=== PATIENT | male | born 1960 | race Caucasian/White ===

== ENCOUNTER 2017-03-04 10:05 | Emergency (ER) | payer BC ==
[~2017-03-04] VITALS: Ht 175.3 cm; Wt 95.4 kg
[2017-03-04 10:20] VITALS: TEMP 36.8; Ht 175.3 cm; Wt 95.4 kg
[2017-03-04] MEDS ORDERED: ZNTT/150 PO (10:45)
[2017-03-04] MEDS ORDERED: ALBU18002 INH (10:45)
[2017-03-04] MEDS ORDERED: MOME16.7 INH (10:45)
[2017-03-04] MEDS ORDERED: SERT50TA PO (10:45)
[2017-03-04] MEDS ORDERED: SRVDIN50 INH (10:45)
[2017-03-04] MEDS ORDERED: DOXE10CA PO (10:45)
[2017-03-04] MEDS ORDERED: HYDR-4715 PO (10:45)
[2017-03-04] MEDS ORDERED: PRED-301 PO (10:45)
[2017-03-04] MEDS ORDERED: ALBUT/IPRATROP 3MG/0.5MG NEB 3 ML VIAL INH STA (11:18)
[2017-03-04] MEDS ORDERED: METHYLPREDNISOLONE 125 MG VIAL IV STA (11:19)
[2017-03-04 11:36] LABS: BASO % 0.1 %; BASO ABS # 0.02 K/uL (0-0.2); COMPLETE YES; EOS % 0.2 %; HEMATOCRIT 43.4 % (42-52); IG% 0.9 %; LYMPH % 11.8 %; LYMPH ABS # 1.68 K/uL (1.2-3.4); MEAN CELL VOLUME 88.4 fL (80-100); MEAN CORPUSCULAR HEMOGLOBIN 29.1 pg (25-34); MEAN CORPUSCULAR HGB CONC 32.9 g/dl (32-36); MEAN PLATELET VOLUME 9.2 fL (7.4-10.4); MONO % 13.4 %; NEUT % 73.6 %; PLATELET COUNT 355 K/uL (130-400); RED BLOOD COUNT 4.91 M/uL (4.7-6.1); WHITE BLOOD COUNT 14.29 K/uL (4.8-10.8)
--- NOTE | 2017-03-04 11:45 | DIAGNOSTIC IMAGING REPORT ---
CHEST 2 VIEWS ROUTINE CLINICAL HISTORY: Respiratory distress. Dyspnea. COMPARISON STUDY: No previous studies for comparison. FINDINGS: Lung volumes are normal. There is no pneumothorax or pleural effusion. There are multifocal airspace opacities within the bilateral mid to lower lungs. Cardiac size is normal. Mediastinal contours are normal. IMPRESSION: Moderate multifocal bilateral opacities. The radiographic appearance is nonspecific although pneumonia is favored. Radiographic follow-up to ensure resolution is recommended. Electronically signed by: Yousif Mason M.D. 03/04/2017 11:44 AM Dictated Date/Time: 03/04/2017 11:43 AM
[2017-03-04 11:54] LABS: CALCIUM 9.2 mg/dl (8.5-10.1); CREATININE 0.8 mg/dl (0.60-1.40)
[2017-03-04 11:57] LABS: ALB/GLOB RATIO 0.8 (0.9-2)
--- NOTE | 2017-03-04 12:10 | EMERGENCY ROOM VISIT NOTE ---
History First contact with patient: 11:06 Chief Complaint: RESPIRATORY DISTRESS Stated Complaint: ASTHMA ATTACK Nursing Triage Summary: Diff breathing, pt utilizing inhalers with no relief, called [facility], told to come to the ER. Pt talking full sentences in triage. Moist cough noted. History of Present Illness The patient is a 56 year old male who presents to the Emergency Room with complaints of wheezing and shortness of breath for the past week. Patient states that he has a form of allergic asthma, he is treated on multiple antihistamines and inhalers. He has been using his albuterol inhaler several times a day with minimal improvement. He states that he started taking prednisone 40 mg daily 5 days ago and has not improved with this as well. He does note for the past few days that he has had some chills and feeling more fatigued. His cough is nonproductive. He does note shortness of breath with exertion. He denies any chest pain. He discussed with his PCP today who told him to go to the ER because of persistent worsening symptoms. Review of Systems GENERAL: + fevers, chills, malaise, fatigue. Denies unintentional weight changes. HEENT: Denies dizziness, visual problems, hearing loss, tinnitus. Denies difficulty swallowing or oral lesions. PULMONARY: + Cough, shortness of breath, dyspnea on exertion. Denies sputum production or hemoptysis. CARDIOVASCULAR: Denies chest pain, palpitations, dyspnea on exertion, orthopnea or peripheral edema. GASTROINTESTINAL: Denies diarrhea, constipation, nausea, vomiting, or abdominal pain. GENITOURINARY: Denies dysuria, frequency, urgency or nocturia. NEUROLOGIC: Denies history of epilepsy, CVA, TIA or chronic headaches. MUSCULOSKELETAL: Denies history of joint tenderness/swelling. SKIN: Denies rashes or lesions. PSYCHIATRIC: Denies history of depression or mental illness. ENDOCRINE: Denies history of diabetes, thyroid disorders, abnormal hair growth or sexual dysfunction. Social History Smoking Status: Never Smoker Current/Historical Medications Scheduled Albuterol Sulfate (Proair Respiclick), 1 PUFF INH BID Doxepin (Sinequan), 1 CAP PO BID Doxycycline Hyclate (Doxycycline Hyclate Dr), 100 MG PO BID Mometasone Furoate (Inhalation (Asmanex Hfa), 1 PUFF INH BID Prednisone (Prednisone), 1 TAB PO QPM Ranitidine (Zantac), 1 TAB PO BID Salmeterol Xinafoate (Serevent Diskus), 1 PUFF INH BID Sertraline (Zoloft), 1 TAB PO BID Scheduled PRN Hydralazine Hcl (Apresoline), 1 TAB PO QID PRN for HIVES Allergies Coded Allergies: Erythromycin (Unverified Allergy, Intermediate, UNKNOWN/ALLERGY LONG AGO. , 03/04/17) Penicillins (Unverified Allergy, Intermediate, UNKNOWN/ALLERGY LONG AGO, ) Physical Exam Vital Signs Date Time Temp Pulse Resp B/P Pulse Ox O2 Delivery O2 Flow Rate FiO2 03/04/17 14:46 82 16 103/63 94 Room Air 03/04/17 13:52 93 03/04/17 13:45 107 16 130/87 96 Room Air 03/04/17 13:00 95 Room Air 03/04/17 13:00 95 Room Air 03/04/17 12:11 94 20 95 03/04/17 10:20 36.8 90 22 123/78 95 Room Air Physical Exam CONSTITUTIONAL: No acute distress. Well appearing and well nourished. Alert and oriented X 4 with normal affect. HEENT: Normocephalic, atraumatic. Pupils equal, round and reactive to light, EOMI. TMs normal. Pharynx normal. Moist mucous membranes. NECK: Supple, full active range of motion without discomfort. RESPIRATORY: Lung espinal are rhonchitic throughout with expiratory wheezes in all espinal. Bibasilar crackles and diminished lung sounds in the bases. CARDIOVASCULAR: Regular rate and rhythm with no murmurs, rubs or gallops. Normal peripheral perfusion. No edema. GASTROINTESTINAL: Soft, nontender, nondistended. Bowel sounds present in all quadrants. MUSCULOSKELETAL: Full range of motion of all joints without discomfort. INTEGUMENTARY: No rash or other significant dermatologic conditions noted. NEUROLOGIC: Cranial nerves II-XII grossly intact. No focal neurologic deficits noted. Medical Decision & Procedures ER Provider Diagnostic Interpretation: CHEST 2 VIEWS ROUTINE CLINICAL HISTORY: Respiratory distress. Dyspnea. COMPARISON STUDY: No previous studies for comparison. FINDINGS: Lung volumes are normal. There is no pneumothorax or pleural effusion. There are multifocal airspace opacities within the bilateral mid to lower lungs. Cardiac size is normal. Mediastinal contours are normal. IMPRESSION: Moderate multifocal bilateral opacities. The radiographic appearance is nonspecific although pneumonia is favored. Radiographic follow-up to ensure resolution is recommended. Laboratory Results 03/04/17 11:20 Red Blood Count 4.91, Mean Corpuscular Volume 88.4, Mean Corpuscular Hemoglobin 29.1, Mean Corpuscular Hemoglobin Concent 32.9, Mean Platelet Volume 9.2, Neutrophils (%) (Auto) 73.6, Lymphocytes (%) (Auto) 11.8, Monocytes (%) (Auto) 13.4, Eosinophils (%) (Auto) 0.2, Basophils (%) (Auto) 0.1, Neutrophils # (Auto ) 10.52, Lymphocytes # (Auto) 1.68, Monocytes # (Auto) 1.91, Eosinophils # (Auto ) 0.03, Basophils # (Auto) 0.02 03/04/17 11:20 Test 03/04/17 11:20 White Blood Count 14.29 K/uL (4.8-10.8) Red Blood Count 4.91 M/uL (4.7-6.1) Hemoglobin 14.3 g/dL (14.0-18.0) Hematocrit 43.4 % (42-52) Mean Corpuscular Volume 88.4 fL (80-100) Mean Corpuscular Hemoglobin 29.1 pg (25-34) Mean Corpuscular Hemoglobin Concent 32.9 g/dl (32-36) Platelet Count 355 K/uL (130-400) Mean Platelet Volume 9.2 fL (7.4-10.4) Neutrophils (%) (Auto) 73.6 % Lymphocytes (%) (Auto) 11.8 % Monocytes (%) (Auto) 13.4 % Eosinophils (%) (Auto) 0.2 % Basophils (%) (Auto) 0.1 % Neutrophils # (Auto) 10.52 K/uL (1.4-6.5) Lymphocytes # (Auto) 1.68 K/uL (1.2-3.4) Monocytes # (Auto) 1.91 K/uL (0.11-0.59) Eosinophils # (Auto) 0.03 K/uL (0-0.5) Basophils # (Auto) 0.02 K/uL (0-0.2) RDW Standard Deviation 44.8 fL (36.4-46.3) RDW Coefficient of Variation 13.9 % (11.5-14.5) Immature Granulocyte % (Auto) 0.9 % Immature Granulocyte # (Auto) 0.13 K/uL (0.00-0.02) Anion Gap 7.0 mmol/L (3-11) Est Creatinine Clear Calc Drug Dose 118.9 ml/min Estimated GFR () 116.6 Estimated GFR (Non- 100.6 BUN/Creatinine Ratio 21.0 (10-20) Calcium Level 9.2 mg/dl (8.5-10.1) Total Bilirubin 0.6 mg/dl (0.2-1) Aspartate Amino Transf (AST/SGOT) 24 U/L (15-37) Alanine Aminotransferase (ALT/SGPT) 44 U/L (12-78) Alkaline Phosphatase 76 U/L (45-117) Total Protein 7.7 gm/dl (6.4-8.2) Albumin 3.4 gm/dl (3.4-5.0) Globulin 4.3 gm/dl (2.5-4.0) Albumin/Globulin Ratio 0.8 (0.9-2) Medications Administered Medications (Trade) Dose Ordered Sig/Fernando Route Start Time Stop Time Status Last Admin Dose Admin Albuterol/ Ipratropium (Duoneb) 3 ml NOW STAT INH 03/04/17 11:18 03/04/17 11:19 DC 03/04/17 11:54 3 ML Methylprednisolone Sodium Succinate 125 mg 125 mg NOW STAT IV 03/04/17 11:19 03/04/17 11:20 DC 03/04/17 11:54 125 MG Doxycycline Hyclate/Dextrose (Vibramycin IV/ D5 100ml) 110 ml @ 50 mls/hr NOW STAT IV 03/04/17 12:24 03/04/17 14:35 DC 03/04/17 12:59 50 MLS/HR Medical Decision Lungs rhonchitic throughout with expiratory wheezes, consistent with an asthma exacerbation. Chest x-ray ordered to evaluate for pneumonia, which shows multifocal opacities. Labs show mild leukocytosis and are otherwise fairly unremarkable. Patient is afebrile and has stable vital signs. Patient remains well appearing and states he feels well, no distress and would like to go home. Ambulatory sats within normal limits and no increased shortness of breath with exertion. Due to patient's medication allergies and interactions with current medications , limited options for treatment of community-acquired pneumonia therefore doxycycline was chosen, first dose given IV in the ED. Patient was given strict instructions to follow with his PCP in the next 24 hours, and to return to the ER for any worsening symptoms, he verbalized understanding. Patient was discussed with the attending physician, who agrees with my assessment and disposition. Impression Primary Impression: Multifocal pneumonia Departure Information Dispostion Home / Self-Care Condition GOOD Prescriptions Doxycycline Hyclate (Doxycycline Hyclate Dr) 50 Mg Tab 100 MG PO BID for 7 Days, #28 TAB Prov: Tammie Jenkins CRNP 03/04/17 Referrals Sarah Antony D.O. (PCP) Patient Instructions Asthma - [facility], COPD - [facility], Croup - [facility], ED Pneumonia, [facility] Additional Instructions Follow-up with your PCP tomorrow to be rechecked. Drink plenty of fluids to stay well hydrated. Continue using your albuterol inhaler 2 puffs every 4 hours as needed for cough, wheezing, chest tightness. Take the doxycycline as prescribed, twice a day for the next 7 days. This prescription has been sent to your pharmacy. Please return to the ER for any worsening symptoms, including increased shortness of breath, chest pain, coughing up blood, fever/chills/feeling ill, or any other concerns.
[2017-03-04] MEDS ORDERED: DOXYCYCLINE IV 100 MG in DEXTROSE 5% 100ML 100 ML IV STA (12:24)
[2017-03-04] MEDS ORDERED: DOXY50TA PO (12:53)
[2017-03-04 13:00] VITALS: O2SAT 95
[2017-03-04 14:46] VITALS: BP 103/63; PULSE 82; O2SAT 94
== END 2017-03-04 15:22 | disposition home or self-care (01) ==
LOC: C.EDB 10:06
DX: J18.9 Pneumonia, unspecified organism (principal); Z79.899 Other long term (current) drug therapy